=== PATIENT | female | born 1945 | race Caucasian/White ===

== ENCOUNTER 2018-10-09 13:30 | Inpatient (IN) | payer MEDICARE ==
[2018-10-17] MEDS ORDERED: CEFAZOLIN 1G VIAL IVP ONE (06:00)
[2018-10-17] MEDS ORDERED: SODIUM CHLORIDE IV ONE ×2 (06:00)
[2018-10-17] MEDS ORDERED: MECLIZINE 25 MG TABLET PO ONE (06:00)
[2018-10-17] MEDS ORDERED: VANCOMYCIN HCL 1,000 MG in DEXTROSE 5 % IN WATER 250 ML IVPB ONE ×2 (06:00)
[2018-10-17] MEDS ORDERED: RINGERS SOLUTION,LACTATED 1,000 ML IV ONE ×3 (06:00→10:00)
[2018-10-17] MEDS ORDERED: WATER STERILE FOR INJECTION 20 ML VIAL MC ONE (06:00)
[2018-10-17] MEDS ORDERED: CELECOXIB 100 MG CAPSULE PO ONE (06:00)
[2018-10-17] MEDS ORDERED: METOCLOPRAMIDE 10 MG TABLET PO ONE (06:00)
[2018-10-17] MEDS ORDERED: FAMOTIDINE 20MG TABLET PO ONE (06:00)
[2018-10-17] MEDS ORDERED: CEFAZOLIN 2 Gram 2 GM/50 ML BAG IVPB ONE (06:00)
[2018-10-17 07:57] LABS: ABO GROUP O; ANTIBODY SCREEN NEGATIVE (NEGATIVE); RH TYPE POSITIVE
[2018-10-17] MEDS ORDERED: 0.9 % SODIUM CHLORIDE 1000ML 1,000 ML IV ONE ×2 (10:00→10:41)
[2018-10-17] MEDS ORDERED: ONDANSETRON HCL IV 4 MG/2 ML VIAL IVP PRN (11:13)
[2018-10-17] MEDS ORDERED: DIPHENHYDRAMINE HCL 25 MG CAPSULE PO PRN (11:13)
[2018-10-17] MEDS ORDERED: NALOXONE 0.4 MG/1 ML VIAL IVP PRN (11:13)
[2018-10-17] MEDS ORDERED: AL HYDROX/MAG HYDROX 30ML UD PO PRN (11:13)
[2018-10-17] MEDS ORDERED: TRAMADOL HCL 50 MG TABLET PO PRN (11:13)
[2018-10-17] MEDS ORDERED: MAGNESIUM HYDROXIDE 30 ML UDC PO PRN (11:13)
[2018-10-17] MEDS ORDERED: ACETAMINOPHEN 325 MG TAB PO PRN (11:13)
[2018-10-17] MEDS ORDERED: BISACODYL 10 MG SUPP RC PRN (11:13)
[2018-10-17] MEDS ORDERED: HYDROCODONE/APAP 10/325 TABLET PO PRN (11:13)
[2018-10-17] MEDS ORDERED: ZOLPIDEM TARTRATE 5 MG TABLET PO PRN (11:13)
[2018-10-17] MEDS ORDERED: HYDROMORPHONE HCL 2 MG/ML VIAL IM PRN (11:13)
[2018-10-17] MEDS ORDERED: ACETAMINOPHEN W/ CODEINE 300MG/60MG TABLET PO PRN ×2 (11:13)
[2018-10-17] MEDS ORDERED: KETOROLAC 30 MG/ML VIAL IVP PRN ×2 (11:13)
[2018-10-17] MEDS ORDERED: CEFAZOLIN 2 Gram 2 GM/50 ML BAG IVPB SCH (11:15)
[2018-10-17] MEDS ORDERED: DEXAMETHASONE 4 MG/ML 1ML VIAL IVP ONE (13:33)
[2018-10-17] MEDS ORDERED: ROPIVACAINE HCL (NAROPIN) /PF 5MG/ML 20ML VIAL IV ONE (13:33)
[2018-10-17] MEDS ORDERED: PROPOFOL 10 MG/ML VIAL IV ONE (14:00)
[2018-10-17] MEDS ORDERED: MIDAZOLAM HCL 2MG/2ML VIAL IV ONE (14:00)
[2018-10-17] MEDS ORDERED: GLYCOPYRROLATE 0.2 MG/ML ML IV ONE (14:00)
[2018-10-17] MEDS ORDERED: KETAMINE HCL 100MG/1ML VIAL INJ ONE (14:00)
[2018-10-17] MEDS: HYDROCODONE/APAP 10/325 TABLET PO PRN ×3 (14:07→22:57)
[2018-10-17] MEDS ORDERED: TRANEXAMIC ACID 1,000 MG/10 ML ML IV ONE (15:05)
[2018-10-17] MEDS: CEFAZOLIN 1G VIAL IVP SCH (17:34)
--- NOTE | 2018-10-17 17:56 | Rehab Evaluation ---
Patient Information - Patient Information Diagnosis: L hip OA Ordered Treatment: OT Evaluate and Treat Status: Initial Evaluation Surgery: Yes (THR L) Date of Surgery: 10/17/18 Past Medical/Surgical Hx: PAST MEDICAL/SURGICAL HISTORY Past Surgical History RTHA 3 YRS AGO BLADDER TUMOR REMOVED RIGHT SHOULDER SX X'S 2 TUMMY TUCK C SCOPES BILAT CATS CARDIOVERSION X'S 2 6 MONTHS AGO PMH - Respiratory Hx Respiratory Disorders Yes Hx Bronchitis Yes: IN PAST PMH - Cardiovascular Hx Cardiovascular Disorders Yes Hx Abnormal EKG Yes Hx Hypertension Yes: ON MEDS GOOD CONTROL Hx Irregular Heartbeat Yes: HX A FIB RESOLVED WITH CARDIOVERSION Exercise Tolerance Poor Comment: D/T HIP AND BACK PAIN PMH - Neuro Hx Neurological Disorders Yes Hx Weakness Yes: LEFT HIP PMH - GI Hx Gastrointestinal Disorders Yes Hx Gastroesophageal Reflux Yes: GOOD CONTROL ON MEDS PMH - Hx Genitourinary Disorders Yes Hx Bladder Problem Yes: CANCER RECENT DX HAD TUMOR REMOVED PMH - Endocrine Hx Endocrine Disorders No PMH - Musculoskeletal Hx Musculoskeletal Disorders Yes Hx Arthritis Yes Comment: LEFT HIP PAIN PMH - Psych Hx Psychiatric Problems Yes Hx Depression Yes: ON MEDS PMH - Hematology/Oncology Hx Hematology/Oncology Yes Disorders Hx Cancer Yes: BLADDER Hx Chemotherapy No Hx Radiation Therapy No Premorbid Status: Detail (The pt. was independent with all mobility prior to surgery.) Social History: Detail (The patient lives alone in a one story house with 5 steps at the enterance. The bathroom has a walkin shower with a shower seat and grabs and an elevated toilet seat with grab bars. The patient has a front wheeled walker and standard cane.) Precautions: [place], Fall, Other (THR precautions, WBAT on the L LE.) - Time With Patient Total Time Spent With Patient (Min): 30 Treatment Procedures: Detail (Initial evaluation, transfer training) Subjective Information - Subjective Information Per Patient (The patient had minimal complaints of hip pain.) Objective Data - Mental Status Patient Orientation: Oriented x3 - Visual Perception Appears within normal limits for therapeutic activities - ROM Not within normal limits (The patient's L hip AROM is within THR precautions. All other LE AROM is WNL.) - Strength/Tone Not within normal limits (The patient's LE strength was not tested s/p surgery. The patient presented functional with L LE weakness as indicated by assistance required with transfers.) - Bed Mobility Needs Assist (Mod PA of 2 with supine to and from sit.) - Transfers Independent (Moderate PA of 2 with sit to stand transfer and pivot transfer to commode x 1. The patient required minimal PA of 1 with sit to stand on commode x1( after sitting on the commode for awhile.) - Balance Balance Sitting: Good Balance Standing: Fair - Gait Detail (The patient was able to take two steps towards bed with front wheeled walker.) Therapy Assessment - Therapy Assessment Detail (The patient required assistance with bed mobility, transfers and was unable to ambulate due to L LE numbness. Feel patient will due better once symptoms of L LE numbness diminishes.) Patient Education - Patient Education Teaching Topic: Precautions (The patient was able to verbalize THR precautions.) Response: Verbalize Understanding Teaching Method: Discussion Teaching Recipient: Patient Barriers To Learning: Age Related Problem List - Problem List Physical Therapy Problem List: Detail (1)Assistance with mobility2) Impaired ambulation s/p surgery 3)Decreased LE strength) Goals - Goals Physical Therapy Goals: 1) The pt. will be independent with ambulation with front wheeled walker household distances. 2) The pt. will be independent with bed mobility and tranfers. 3) The pt. will be independent with THR HEP and precautions. Prognosis - Prognosis Good Plan - Plan Physical Therapy Plan: PT 1-2 times a day until all inpatient PT goals are met for gait training and transfer training and instruction in THR HEP.
[2018-10-17] MEDS ORDERED: PNEUM 23-VAL ADULT IM ONE (19:13)
[2018-10-17] MEDS: DOCUSATE SODIUM 100 MG CAPSULE PO SCH (22:56)
[2018-10-18] MEDS: POTASSIUM CHLORIDE/D5-0.9%NACL 20 MEQ/1,000 ML BAG IV SCH ×2 (01:57→12:55)
[2018-10-18] MEDS: CEFAZOLIN 1G VIAL IVP SCH ×2 (01:58→09:46)
[2018-10-18] MEDS: HYDROCODONE/APAP 10/325 TABLET PO PRN ×2 (04:03→13:30)
[2018-10-18] MEDS ORDERED: PANTOPRAZOLE SODIUM 40 MG TABLET PO SCH (07:00)
[2018-10-18 08:41] LABS: BLOOD UREA NITROGEN 19 mg/dL (8-23); CREATININE 0.8 mg/dL (0.5-0.9); EST GLOMERULAR FILTRATION RATE > 60 mL/min; GLUCOSE,RANDOM 136 mg/dL (74-109)
[2018-10-18 09:15] LABS: HEMATOCRIT 35.3 % (35.0-47.0); HEMOGLOBIN 10.9 gm/dl (11.6-16.0)
--- NOTE | 2018-10-18 09:20 | Operative Note ---
DATE OF SURGERY: 10/17/2018 PREOPERATIVE DIAGNOSIS: End-stage arthrosis of the left hip. POSTOPERATIVE DIAGNOSIS: End-stage arthrosis of the left hip. OPERATION: Left total hip arthroplasty using Crum [employer] Nephew components with a size 52 no-hole Reflection cup, a size 32 mm diameter 35-degree offset highly cross-linked liner, a size 14 high-offset cementless [place] stem with a +4 32 mm diameter cobalt chrome head. STAFF SURGEON: Issa Ledesma MD ANESTHESIA: Spinal. PREPARATION: Chloraprep. INDIVIDUAL CONSIDERATIONS: This lady was morbidly obese with a body mass index approaching 50%. She had a huge soft tissue envelope with a fatty layer over 4 inches thick which made dissection, exposure, and closure much more difficult and time consuming. PROCEDURE: The patient was taken to the operating room, placed supine on the operating room table. She had a successful induction of spinal anesthetic. She was then placed on her side left side up, and her left leg and hip were prepped and draped in the usual fashion. The patient had direct posterior approach to the hip. Sharp dissection carried down through skin and subcutaneous tissues. Small veins were coagulated with a Bovie. The tensor gluteal fascia was opened along the entire length of the incision, and deep retractors were placed. Short external rotators were identified, piriformis fossa removed exposing the posterior capsule. Posterior capsulectomy was performed. Hip was dislocated posteriorly. She had exposed bone and large marginal osteophytes about the femoral head. A femoral neck cut was then made about a fingerbreadth above the lesser troch using an oscillating saw. A rim capsulectomy was performed. Starting with a 43 mm reamer to find the medial wall, I reamed to the introitus, which was a 51 for a size 52 cup. After thorough irrigation, I impacted a size 52 no-hole Reflection cup in 20 degrees of forward flexion and 40 degrees of abduction using the extraarticular alignment guide and bony landmarks. There was solid cementless fixation. A center cap screw was placed, and after irrigation, I impacted a 32 mm diameter 35-degree offset liner with the offset primarily posteriorly and slightly inferiorly. This gave an excellent stable acetabular construct, and this was packed off. The proximal femur was delivered into the wound, and box cutting osteotome was used to remove the proximal metaphyseal bone. Mid stem reaming was done to a size 14. I started feeling cortex between 11-12. I broached to a 14, dialed anteversion to about 25-30 degrees. After broaching, I used a broach as a trial. I had solid fixation. I went ahead and calcar reamed with a +4 32 head. There was absolute stability. There was full anterior stability in extension and external rotation. I was able to flex up to her pedunculus and flex to 90 degrees with 90 degrees of internal rotation and still had stability. The trial was removed and after thorough irrigation, I went ahead and impacted a size 14 cementless [place] stem with solid calcar contact and solid cementless fixation. I dried off the [place] taper and impacted a +4 32 mm diameter cobalt chrome head. I reduced the hip and this gave similar absolute stability. Thorough irrigation was done after getting hemostasis with a Bovie. After irrigation, I checked the sciatic nerve and it was found to be completely intact. I mixed 1 g of tranexamic acid with 30 mL of saline and placed this deep in the fascia. The fascia was then closed with a running #2 quill, subcu was closed in layers with running 0 quill, skin was closed with daron. I infiltrated the skin with 30 mL of 0.5% Marcaine with epinephrine. The skin was closed with daron. Sterile bulky compressive RAVINDER dressing was applied. The patient tolerated the procedure well. Needle and sponge counts were correct. Estimated blood loss was between 300-400 mL. She was taken back to recovery room in good condition. There were no complications. EDITH
[2018-10-18] MEDS: DOCUSATE SODIUM 100 MG CAPSULE PO SCH (09:45)
[2018-10-18] MEDS ORDERED: DULOXETINE HCL 30 MG CAPSULE.DR PO SCH (10:00)
[2018-10-18] MEDS ORDERED: ATORVASTATIN 20 MG TABLET PO SCH (10:00)
[2018-10-18] MEDS ORDERED: FERROUS SULFATE 325 MG TAB PO SCH (10:00)
[2018-10-18] MEDS ORDERED: LISINOPRIL 20 MG TABLET PO SCH (10:00)
[2018-10-18] MEDS ORDERED: MAGNESIUM OXIDE 400 MG TABLET PO SCH (10:00)
[2018-10-18] MEDS ORDERED: RIVAROXABAN 20 MG TABLET PO SCH (10:00)
[2018-10-18] MEDS ORDERED: HYDROCHLOROTHIAZIDE 12.5 MG CAPSULE PO SCH (10:00)
[2018-10-18] MEDS ORDERED: ATENOLOL 50 MG TABLET PO SCH (10:00)
--- NOTE | 2018-10-18 11:54 | Physical Therapy Tx Note ---
Physical Therapy Tx Note - Treatment Note Tolerated: Good Total Time Spent With Patient: 30 Physical Therapy Tx Note: Detail (The patient was up in a chair when PT arrived. The patient reported her L hip only hurt with movement. The patient was anxious to go home and stated her granddaughter would be staying with her for the first week. The patient was independent with sit to and from sitting transfer. The patient ambulated with front wheeled walker a distance 100 feet x 1 WBAT on the L LE. The patient ambulated on 3 stairs with use of one railing and folded walker using proper technique with supervision for safety. The patient completed sit to supine with minimal assist to lift L LE. The patient was instructed to use a strap to lift L LE with bed mobility. The patient completed the following THR with occasional cues for proper technique: gluteal sets, quad sets, hamstring sets, ankle pumps, hip abduction with a strap and heel slides. The patient stated she felt comfortable completing stairs. The patient has met all inpatient PT goals and is discharged from inpatient PT.) Physical Therapy Problem List: Detail (1)Assistance with mobility2) Impaired ambulation s/p surgery 3)Decreased LE strength) Physical Therapy Goals: 1) The pt. will be independent with ambulation with front wheeled walker household distances. (Goal Met). 2) The pt. will be independent with bed mobility and tranfers (Goal Met with use of strap with supine to and from sit). 3) The pt. will be independent with THR HEP and precautions. (Goal Met) Physical Therapy Plan: The patient has met all inpatient goals and is discharged from inpatient PT. The patient is to receive Home PT.
--- NOTE | 2018-10-18 12:09 | Rehab Evaluation ---
Patient Information - Patient Information Diagnosis: L hip OA Ordered Treatment: OT Evaluate and Treat Status: Initial Evaluation Surgery: Yes (THR L) Date of Surgery: 10/17/18 Past Medical/Surgical Hx: PAST MEDICAL/SURGICAL HISTORY Past Surgical History RTHA 3 YRS AGO BLADDER TUMOR REMOVED RIGHT SHOULDER SX X'S 2 TUMMY TUCK C SCOPES BILAT CATS CARDIOVERSION X'S 2 6 MONTHS AGO PMH - Respiratory Hx Respiratory Disorders Yes Hx Bronchitis Yes: IN PAST PMH - Cardiovascular Hx Cardiovascular Disorders Yes Hx Abnormal EKG Yes Hx Hypertension Yes: ON MEDS GOOD CONTROL Hx Irregular Heartbeat Yes: HX A FIB RESOLVED WITH CARDIOVERSION Exercise Tolerance Poor Comment: D/T HIP AND BACK PAIN PMH - Neuro Hx Neurological Disorders Yes Hx Weakness Yes: LEFT HIP PMH - GI Hx Gastrointestinal Disorders Yes Hx Gastroesophageal Reflux Yes: GOOD CONTROL ON MEDS PMH - Hx Genitourinary Disorders Yes Hx Bladder Problem Yes: CANCER RECENT DX HAD TUMOR REMOVED PMH - Endocrine Hx Endocrine Disorders No PMH - Musculoskeletal Hx Musculoskeletal Disorders Yes Hx Arthritis Yes Comment: LEFT HIP PAIN PMH - Psych Hx Psychiatric Problems Yes Hx Depression Yes: ON MEDS PMH - Hematology/Oncology Hx Hematology/Oncology Yes Disorders Hx Cancer Yes: BLADDER Hx Chemotherapy No Hx Radiation Therapy No Premorbid Status: Detail (The Pt was independent with all ADLs and mobility prior to surgery.) Social History: Detail (The patient lives alone in a one story house with 5 steps at the entrance and wide bilateral hand-rails. The bathroom has a walk-in shower with a shower seat and grabs, hand-held shower and an elevated toilet seat with grab bars. The patient has a front wheeled walker and standard cane.) Precautions: [place], Fall, Other (WBAT LLE) - Time With Patient Total Time Spent With Patient (Min): 50 (1 eval, 2 ADL) Treatment Procedures: Detail (ot eval: low complexity) Subjective Information - Subjective Information Per Patient (ok to see per GABBY Lee. Pt agreeable to OT eval and Tx. Reports she would like to go home and her granddaughter will assist as needed at [place] /.) Objective Data - Pain Pain Present: Yes Pain Scale Used: Numeric (1 - 10) (5/10 bilateral hips - RN giving pain meds at bedside) - Mental Status Patient Orientation: Oriented x3 - Visual Perception Appears within normal limits for therapeutic activities - ROM Within normal limits (previous R shoulder Sx x2 - Pt reports normal ROM but with increased time needed for mvmt d/t stiffness) - Strength/Tone Within normal limits - Coordination Appears within normal limits for therapeutic activities - Bed Mobility Independent (supine > EOB with MIN assist, 27 y/o granddaughter able to assist / at DC) - Transfers Independent (sit >< stand from elevated surfaces with FWW and supervision (v/c to maintain hip prec.) progressing to mod I) - Balance Balance Sitting: Good Balance Standing: Good (CGA for dynamic standing balance during standing pant mgmt., rec wearing loose fitting pants upon DC for increased safety and comfort as Pt became flustered and decreased awareness of hip prec.), Fair - Sensation Intact - Gait Detail (Fxl ambulation within bedroom with FWW and supervision - v/c to maintain hip prec and safe use of FWW - granddaughter available to assist / at DC) - ADL's/IADL's Detail (Pt doffs/dons underwear, pants, socks with MOD I post educ. on AE for LB dress. OT educ. Pt on mod. tech. for kitchen, bathroom, and laundry safety at home, Pt verbalizes understanding and reports granddaughter will assist with IADLs.) Therapy Assessment - Therapy Assessment Detail (Pt demos safety and MOD I with LB dressing and verbalizes safe technique for home tasks. Reports her granddaughter will assist with LB dressing upon DC but was encouraged to obtain AE for LB dress to maintain hip prec after granddaughter leaves. Will offer purchase of AE for LB dress again prior to DC. Pt slightly unsteady during dynamic standing tasks with some decrease in safety awareness re: walker use and hip prec, however may be d/t Pt being flustered with tightness of pants and small space in bathroom - refer to PT for fxl amb. notes. Rec. DC home with granddaughter 03/01 supervision and assist as needed when medically appropriate.) Problem List - Problem List Physical Therapy Problem List: Detail (1)Assistance with mobility2) Impaired ambulation s/p surgery 3)Decreased LE strength) Occupational Therapy Problem List: Detail (No further inpatient OT needs identified.) Goals - Goals Physical Therapy Goals: 1) The pt. will be independent with ambulation with front wheeled walker household distances. (Goal Met). 2) The pt. will be independent with bed mobility and tranfers (Goal Met with use of strap with supine to and from sit). 3) The pt. will be independent with THR HEP and precautions. (Goal Met) Occupational Therapy Goals: No further inpatient OT needs/goals identified. Prognosis - Prognosis Good Plan - Plan Physical Therapy Plan: The patient has met all inpatient goals and is discharged from inpatient PT. The patient is to receive Home PT. Occupational Therapy Plan: No further inpatient OT needs identified. [place] inpatient OT services. Thank you for this referral.
[2018-10-18] MEDS ORDERED: 0.9 % SODIUM CHLORIDE 10 ML VIAL IVP ONE (15:29)
[2018-10-18] MEDS ORDERED: TRANEXAMIC ACID 1,000 MG/10 ML ML IV ONE (15:29)
--- NOTE | 2018-10-19 10:00 | Discharge Summary ---
DATE OF ADMISSION: 10/17/2018 DATE OF DISCHARGE: 10/18/2018 DATE OF SURGERY: 10/17/2018 HISTORY: The patient is a delightful 72-year-old female who presents with end- stage arthrosis of her left hip. She was admitted after a left total hip arthroplasty. Postoperatively, she did well. Her discharge hemoglobin was above 9. The plan is to discharge her to home into the care of her family, and home PT visiting nurse has been arranged. She will be given [place] for pain. She takes Xarelto chronically, so she will continue with that. Sutures will be removed by the visiting nurse in 2 weeks. She will follow up in my office in 4 weeks. FINAL DIAGNOSIS/PRIMARY DIAGNOSIS: End-stage arthrosis of the left hip. SECONDARY DIAGNOSES: 1. Operative blood loss anemia. 2. Morbid obesity. OPERATIONS AND PROCEDURES: Cementless left total hip arthroplasty. EDITH
== END 2018-10-18 15:30 | disposition home health service (06) | DRG 470 ==
LOC: MEDSURG 10-17 07:03
PROVIDERS: ADMIT Orthopaedic Surgery; ATTEND Orthopaedic Surgery
PROC: 0SRB06A Replacement of Left Hip Joint with Oxidized Zirconium on Polyethylene Synthetic Substitute, Uncemented, Open Approach (ICD-10-PCS; principal; 2018-10-17 09:00)
DX: M16.12 Unilateral primary osteoarthritis, left hip (principal); I10 Essential (primary) hypertension; E78.00 Pure hypercholesterolemia, unspecified; Z79.01 Long term (current) use of anticoagulants; J44.9 Chronic obstructive pulmonary disease, unspecified; Z86.79 Personal history of other diseases of the circulatory system
CPT/HCPCS: 80048; 85014; 85018; 86850; 86900; 86901; 97110; 97530; 97535; C1776; J0690; J1885; J3480; J3490; J7030; J7060; J7120